=== PATIENT | female | born 1975 ===

== ENCOUNTER 2024-12-31 20:05 | Inpatient (IN) | payer MEDICAID ==
[~2024-12-31] VITALS: Ht 165.1 cm; Wt 100.3 kg
[2024-12-31 21:13] LABS: BASOPHILS ABSOLUTE AUTO 0.08 K/mm3 (0.00-0.23); BASOPHILS PERCENT AUTO 1 % (0-2); EOSINOPHILS ABSOLUTE AUTO 0.17 K/mm3 (0.00-0.68); EOSINOPHILS PERCENT AUTO 2 % (0-6); Hematocrit 42.8 % (33.0-51.0); Hemoglobin 14.0 g/dL (11.5-16.0); IMMATURE GRAN ABSOLUTE AUTO 0.04 K/mm3 (0.00-0.10); IMMATURE GRAN PERCENT AUTO 0 % (0-1); LYMPHOCYTES ABSOLUTE AUTO 2.38 K/mm3 (0.84-5.20); LYMPHOCYTES PERCENT AUTO 24 % (21-46); MONOCYTES ABSOLUTE AUTO 0.91 K/mm3 (0.16-1.47); MONOCYTES PERCENT AUTO 9 % (4-13); Mean Corpuscular HGB Conc 32.7 g/dL (31.5-36.5); Mean Corpuscular Volume 91 fL (80-100); NEUTROPHILS ABSOLUTE AUTO 6.45 K/mm3 (1.96-9.15); NEUTROPHILS PERCENT AUTO 64 % (41-73); NRBC ABSOLUTE 0.00 K/mm3 (0.00-0.02); NRBC Auto 0.0 /100 WBC (0.0-0.2); Platelet Count 411 K/mm3 (150-400); RDW Coefficient Variation 14.4 % (11.7-14.2); RDW Standard Deviation 48.0 fL (35.1-46.3)
[2024-12-31 22:01] LABS: Ethanol (Alcohol), Blood, Med 8 mg/dL; Salicylate <1.7 mg/dL (2.8-20.0)
[2024-12-31 22:02] LABS: Acetaminophen, Random <2.0 ug/mL (10.0-30.0); Alanine Aminotransfer (ALT/SGP 44 U/L (12-78); Albumin, Blood 3.6 g/dL (3.4-5.0); Albumin/Globulin Ratio 0.9 (0.8-1.8); Anion Gap 10 mmol/L (3-11); Aspartate Aminotrans (AST/SGOT 48 U/L (12-37); Bilirubin, Total 0.8 mg/dL (0.1-1.0); Blood Urea Nitrogen 11 mg/dL (8-24); CO2, Blood 21 mmol/L (21-32); Calcium, Blood 8.9 mg/dL (8.5-10.1); Chloride, Blood 107 mmol/L (98-108); Creatinine, Blood 1.49 mg/dL (0.40-1.00); Globulin, Blood 4.1 g/dL (2.2-4.0); Glucose, Blood 108 mg/dL (70-99); Potassium, Blood 3.4 mmol/L (3.5-5.5); Sodium, Blood 135 mmol/L (136-145); Total Protein, Blood 7.7 g/dL (6.4-8.2)
[2024-12-31] MEDS ORDERED: FLU VACC TS2025-26(6MOS UP)/PF 45 MCG/0.5 ML SYRINGE IM SCH (22:50)
[2024-12-31] MEDS ORDERED: NS 1,000 ML IV SCH (23:00)
[2024-12-31] MEDS ORDERED: LORazepam 2 MG/ML 1ML Injection IV PRN ×2 (23:00)
[2025-01-01 00:52] VITALS: BP 141/85
[2025-01-01] MEDS ORDERED: QUET200 PO (00:59)
[2025-01-01] MEDS ORDERED: CARB100ER PO (01:23)
[2025-01-01] MEDS ORDERED: INGREZZA80 MG PO (01:23)
[2025-01-01 04:37] VITALS: BP 129/92
--- NOTE | 2025-01-01 06:38 | NUR ---
PT STABLE SINCE ADMIT. PT IS AOX3, UNSURE OF DATE. PT WAS ABLE TO TRANSFER WITH SBA TO BED FROM [facility] ON ADMIT. PT HAS BEEN ON CARDIAC MONITORING. 1:[address] FOR SI[address] ROOM HAS BEEN MITIGATED. PT BELONGINGS LOCKED IN CABINET IN ROOM. PT DOES ENDORSE HEARING VOICES WHICH ARE NEGATIVE IN NATURE, WITH SOME TELLING HER TO HARM HERSELF. PT IS TOLEARTING IV FLUIDS WELL. NO BOWEL MOVEMENTS AT THIS TIME. PT IS NPO WITH SIPS/CHIPS OKAYED BY DR. PURVIS. PT IS REQUESTING FOOD BUT CURRENTLY IS BEING COOPERATIVE. PT POOR HISTORIAN ON ADMIT D/T BOUNCING FROM TOPIC TO TOPIC OCCASIONALLY CONTRADICTING HERSELF.
--- NOTE | 2025-01-01 07:51 | NUR ---
Pt is oriented to self, place, and ongoing events but confused to date/time and her speech is disorganized and pressured at times. Denies any abdominal pain. Alert, but keeps eyes closed while actively engaging in conversation. Initiates conversation and readily responds. States that she had 2 BM yesterday. No BM since arrival to PCU. States has pain in her right knee and in her back. V/S are stable. Called lab to come and do the ordered labs for this morning.
--- NOTE | 2025-01-01 08:11 | NUR ---
Pt is asking for a urine check for UTI. States she only has one kidney and is sure that she has an infection.
[2025-01-01 08:26] LABS: BASOPHILS ABSOLUTE AUTO 0.05 K/mm3 (0.00-0.23); BASOPHILS PERCENT AUTO 1 % (0-2); EOSINOPHILS ABSOLUTE AUTO 0.15 K/mm3 (0.00-0.68); EOSINOPHILS PERCENT AUTO 3 % (0-6); Hematocrit 37.1 % (33.0-51.0); Hemoglobin 12.1 g/dL (11.5-16.0); IMMATURE GRAN ABSOLUTE AUTO 0.02 K/mm3 (0.00-0.10); IMMATURE GRAN PERCENT AUTO 0 % (0-1); LYMPHOCYTES ABSOLUTE AUTO 1.54 K/mm3 (0.84-5.20); LYMPHOCYTES PERCENT AUTO 29 % (21-46); MONOCYTES ABSOLUTE AUTO 0.49 K/mm3 (0.16-1.47); MONOCYTES PERCENT AUTO 9 % (4-13); Mean Corpuscular HGB Conc 32.6 g/dL (31.5-36.5); Mean Corpuscular Volume 93 fL (80-100); NEUTROPHILS ABSOLUTE AUTO 3.14 K/mm3 (1.96-9.15); NEUTROPHILS PERCENT AUTO 58 % (41-73); NRBC ABSOLUTE 0.00 K/mm3 (0.00-0.02); NRBC Auto 0.0 /100 WBC (0.0-0.2); Platelet Count 279 K/mm3 (150-400); RDW Coefficient Variation 14.6 % (11.7-14.2); RDW Standard Deviation 49.8 fL (35.1-46.3)
[2025-01-01 08:48] LABS: Alanine Aminotransfer (ALT/SGP 32.0 U/L (12-78); Albumin, Blood 2.9 g/dL (3.4-5.0); Albumin/Globulin Ratio 0.9 (0.8-1.8); Anion Gap 8.0 mmol/L (3-11); Aspartate Aminotrans (AST/SGOT 35.0 U/L (12-37); Bilirubin, Total 0.9 mg/dL (0.1-1.0); Blood Urea Nitrogen 12.0 mg/dL (8-24); CO2, Blood 24.0 mmol/L (21-32); Calcium, Blood 8.3 mg/dL (8.5-10.1); Chloride, Blood 113.0 mmol/L (98-108); Creatinine, Blood 1.13 mg/dL (0.40-1.00); Globulin, Blood 3.3 g/dL (2.2-4.0); Glucose, Blood 98.0 mg/dL (70-99); Potassium, Blood 3.5 mmol/L (3.5-5.5); Sodium, Blood 141.0 mmol/L (136-145); Total Protein, Blood 6.2 g/dL (6.4-8.2)
[2025-01-01] MEDS ORDERED: Heparin Sodium,Porcine 5,000 UNIT/0.5 ML SDV SC SCH (09:00)
--- NOTE | 2025-01-01 09:56 | NUR ---
Pt is agitated, pressured speech and stating that she cannot and does not communicate verbally. Insisting that all her information is on her phone and she needs it to communicate. She is angry.
[2025-01-01 10:01] LABS: Source, Urine Clean Catch
[2025-01-01 10:07] LABS: Bilirubin, Urine Neg (Neg); Color, Urine Yellow (P-Yellow); Glucose Qualitative, Urine Neg (Neg); Ketones, Urine Neg (Neg); Leukocyte Esterase, Urine 1+ (Neg); Protein, Urine 2+ (Neg); Specific Gravity, Urine 1.030 (1.003-1.022); Urobilinogen, Urine NORM (Normal)
--- NOTE | 2025-01-01 10:24 | NUR ---
Dr. Esteban rounded on the patient.
[2025-01-01 10:29] LABS: Red Blood Cells, Urine Not Seen /hpf (0-2)
[2025-01-01 11:50] VITALS: BP 132/98
[2025-01-01 16:02] VITALS: BP 134/100
--- NOTE | 2025-01-01 16:26 | NUR ---
Pt has vascilated from anxious and agitated, talking rapidly and quickly, to calm and cheerful still with pressured speech and flight of ideas. She is responding well to the sitter who is in the room with her today, making pleasant conversation. She is very eager to have clear liquids regularly brought to her. Asking frequently. Had one normal soft brown BM in the toilet. Last abdominal xray was done at 1400. Next one is ordered for 5 am.
--- NOTE | 2025-01-01 16:36 | NUR ---
Spoke with Dr. Oliveira regarding amiodarone gtt which is due to stop at 1999 this evening. New orders for po amiodarone will be put in.
[2025-01-01] MEDS ORDERED: NS 250 ML IV PRN (19:35)
[2025-01-01 19:42] VITALS: BP 141/90
[2025-01-01 23:16] VITALS: BP 129/84
[2025-01-02 03:21] VITALS: BP 108/68
--- NOTE | 2025-01-02 05:47 | NUR ---
SHIFT SUMMARY PT A&Ox4, COMMUNICATES NEEDS APPROPRIATELY. HAS FLIGHT OF IDEAS AND PRESSURED SPEACH. SBA IN ROOM. CONTINENT OF URINE, NO BM THIS SHIFT. NO S/S OF BLEEDING OR ABDOMINAL/RECTAL PAIN. BP STABLE. SR-ST 90-110's, DENIES CP/PRESSURE. SpO2> 92% RA, DENIES SOB, REFUSING TO WEAR CONTINUOUS SpO2 MONITOR. PT DID NOT EXPRESS ANY SUICIDAL IDEATIONS. NO OTHER EVENTS, WILL REPORT TO ONCOMING RN.
--- NOTE | 2025-01-02 07:44 | NUR ---
UPDATE: PT LEFT FLOOR WITH IMAGING AT 0740.
[2025-01-02 08:09] VITALS: BP 110/68
[2025-01-02] MEDS ORDERED: BENZ1 PO (08:49)
[2025-01-02 11:51] VITALS: BP 128/78
--- NOTE | 2025-01-02 14:26 | NUR ---
UPDATE: NOTIFIED MD FREED THIS AFTERNOON OF PTS BOWEL MOVEMENT. ORDERS UPDATED FOR REPEAT PELVIC XRAY. PT ABLE TO TRANSFER TO U IF ALL CALE/TACKS ARE ELIMINATED VIA BM. IMAGING CAME TO BEDSIDE AT APPROX 1410, AWAITING FINDINGS.
[2025-01-02 15:35] VITALS: BP 137/78
--- NOTE | 2025-01-02 16:18 | NUR ---
SHIFT SUMMARY: PT A/O X4, ABLE TO MAKE NEEDS KNOWN. PT HAS BEEN CALM AND COOPERATIVE THIS SHIFT. STRENGTH EQUAL BILATERALLY, SBA TO BATHROOM. PT HAD BM THIS SHIFT. MD NOTIFIED, AWAITING ORDERS. SR-ST 90-100s, OTHER VSS. DENIES CHEST PAIN/PRESSURE. ROOM AIR, SATS >95%. DENIES SOB. PT DID NOT EXPRESS ANY SUICIDAL IDEATIONS. DR CHOW SPOKE WITH PT TODAY, SEE NOTE. PT LYING IN BED, 1:1 SITTER AT BEDSIDE. CALL WITHIN REACH. WILL REPORT TO ONCOMING RN.
[2025-01-02 19:11] VITALS: BP 137/94
[2025-01-03 00:25] VITALS: BP 131/81
[2025-01-03 02:57] VITALS: BP 133/83
[2025-01-03 03:21] LABS: BASOPHILS ABSOLUTE AUTO 0.03 K/mm3 (0.00-0.23); BASOPHILS PERCENT AUTO 1 % (0-2); EOSINOPHILS ABSOLUTE AUTO 0.15 K/mm3 (0.00-0.68); EOSINOPHILS PERCENT AUTO 3 % (0-6); Hematocrit 37.3 % (33.0-51.0); Hemoglobin 11.8 g/dL (11.5-16.0); IMMATURE GRAN ABSOLUTE AUTO 0.05 K/mm3 (0.00-0.10); IMMATURE GRAN PERCENT AUTO 1 % (0-1); LYMPHOCYTES ABSOLUTE AUTO 1.38 K/mm3 (0.84-5.20); LYMPHOCYTES PERCENT AUTO 29 % (21-46); MONOCYTES ABSOLUTE AUTO 0.41 K/mm3 (0.16-1.47); MONOCYTES PERCENT AUTO 9 % (4-13); Mean Corpuscular HGB Conc 31.6 g/dL (31.5-36.5); Mean Corpuscular Volume 94 fL (80-100); NEUTROPHILS ABSOLUTE AUTO 2.71 K/mm3 (1.96-9.15); NEUTROPHILS PERCENT AUTO 57 % (41-73); NRBC ABSOLUTE 0.00 K/mm3 (0.00-0.02); NRBC Auto 0.0 /100 WBC (0.0-0.2); Platelet Count 219 K/mm3 (150-400); RDW Coefficient Variation 13.7 % (11.7-14.2); RDW Standard Deviation 46.7 fL (35.1-46.3)
[2025-01-03 03:50] LABS: Alanine Aminotransfer (ALT/SGP 25.0 U/L (12-78); Albumin, Blood 2.8 g/dL (3.4-5.0); Albumin/Globulin Ratio 0.9 (0.8-1.8); Anion Gap 8.0 mmol/L (3-11); Aspartate Aminotrans (AST/SGOT 20.0 U/L (12-37); Bilirubin, Total 0.4 mg/dL (0.1-1.0); Blood Urea Nitrogen 8.0 mg/dL (8-24); CO2, Blood 24.0 mmol/L (21-32); Calcium, Blood 8.5 mg/dL (8.5-10.1); Chloride, Blood 110.0 mmol/L (98-108); Creatinine, Blood 0.87 mg/dL (0.40-1.00); Globulin, Blood 3.1 g/dL (2.2-4.0); Glucose, Blood 99.0 mg/dL (70-99); Potassium, Blood 4.1 mmol/L (3.5-5.5); Sodium, Blood 138.0 mmol/L (136-145); Total Protein, Blood 5.9 g/dL (6.4-8.2)
--- NOTE | 2025-01-03 05:30 | NUR ---
SHIFT SUMMARY PT A&O X4, AGITATED AT TIMES, PRESSURED SPEECH. PT IN SUICIDE RISK PRECAUTIONS. 1:1 SITTER AT BEDSIDE. PT DID NOT EXPRESS ANY SUICIDAL IDEATIONS T/O SHIFT. HR IN THE 90'S, SR. SHE DENIES ANY CP/PRESSURE, NUMB/TINGLING, SBP STABLE. SpO2 >92% ON RA, SHE DENIES ANY SOB. PT HAS NOT HAD A BM THIS SHIFT, DENIES ANY ABD PAIN OR N/V. PT RESTING IN BED AT THIS TIME CALL LIGHT IN REACH. SITTER AT BEDSIDE. WILL MONITOR PT AND REPORT TO ONCOMING RN.
[2025-01-03 07:40] VITALS: BP 131/102
[2025-01-03 11:51] VITALS: BP 146/96
--- NOTE | 2025-01-03 14:02 | NUR ---
Pt walked to the bathroom. She declined a shower this morning. Walking to and from the bathroom to bed without difficulty.
--- NOTE | 2025-01-03 17:01 | NUR ---
SHIFT SUMMARY/DISCHARGE PATIENT IS ALERT AND ORIENTED, ABLE TO FOLLOW COMMANDS AND MAKE NEEDS KNOWN. VSS, TELE IN PLACE AT START OF SHIFT, SINUS TACH IN 100'S, SPO2 >90% ON RA. PATIENT DENIES PRESENCE OF CHEST PAIN, PRESSURE, OR SHORTNESS OF BREATH. PATIENT DENIES N/V/D. DENIES DIFFICULTY URINATING. PATIENT DENIES SUICIDAL/HOMICIDAL IDEATION THIS SHIFT. SI RISK PRECAUTIONS IN PLACE, 1:1 SITTER PRESENT. PATIENT IS A SBA TO THE BATHROOM WITH SUPERVISION. DISCHARGE REPORT GIVEN TO U RN. U RN AND SECURITY TO ESCORT PATIENT TO [facility]. ALL PATIENT BELONGINGS WITH PATIENT ESCORT. PATIENT IN NO SIGNS OF DISTRESS.
--- NOTE | 2025-01-03 17:07 | NUR ---
[facility] employee Reuben arrived just at 5 pm and the pt was escorted from the unit. All her belongings in a red personal bag and a white hospital belongings bag were given to Reuben. There were no other patient items left in the closet nor in the room.
== END 2025-01-03 17:00 | DRG 394 ==
LOC: ER 20:05 → PCU 20:06 → ERHOLD 20:06 → PCU 01-01 00:37
PROVIDERS: Family Medicine; Student in an Organized Health Care Education/Training Program; ADMIT Internal Medicine
DX: T18.4XXA Foreign body in colon, initial encounter (principal); F20.0 Paranoid schizophrenia; N17.9 Acute kidney failure, unspecified; R45.851 Suicidal ideations; W44.H9XA Other sharp object entering into or through a natural orifice, initial encounter; F10.10 Alcohol abuse, uncomplicated; E87.6 Hypokalemia; F15.10 Other stimulant abuse, uncomplicated; F12.10 Cannabis abuse, uncomplicated; Z91.51 Personal history of suicidal behavior
CPT/HCPCS: 36415; 71045; 72170; 74018; 74019; 80053; 80320; 81001; 85025; 87086; 94762; 96361; 96365; 96366; 96368; 99285-25; A9270; G0378; G0480; J3411; J3480; J7030; J7050

== ENCOUNTER 2025-01-03 11:22 | Inpatient (IN) | payer MEDICAID ==
[~2025-01-03] VITALS: Ht 152.4 cm; Wt 94.3 kg
[~2025-01-03 11:22] MED LIST: BENZ1 PO; CARB100ER PO; INGREZZA80 MG PO; QUET200 PO
[2025-01-03 17:17] VITALS: BP 137/114
[2025-01-03] MEDS ORDERED: Ondansetron 4 MG SoluTab MM PRN (17:35)
[2025-01-03] MEDS ORDERED: Polyethylene Glycol 3350 17 gm PO PRN (17:35)
[2025-01-03 17:39] VITALS: BP 137/114
[2025-01-03] MEDS ORDERED: FLU VACC TS2025-26(6MOS UP)/PF 45 MCG/0.5 ML SYRINGE IM SCH (17:40)
[2025-01-03] MEDS ORDERED: Aluminum Hydroxide 320MG/5ML 473 ML PO PRN (17:40)
--- NOTE | 2025-01-03 18:14 | NUR ---
SHIFT SUMMARY PT CURRENTLY DENIES SI, HI, VISUAL AND TACTILE HALLUCINATIONS. ENDORSES AUDITORY HALLUCINATIONS, STATES THEY ARE HER "CHEERLEADERS", BUT SOMETIMES SAY "NEGATIVE" THINGS TO HER. DENIES COMMAND HALLUCINATIONS. PT SPEECH IS CIRCUMSTANTIAL; PT ALSO HAS PARANOIA ABOUT WATER AND PREFERS SEALED DRINKS "JUICES OR SODAS". PT STATES SHE'S "NEVER" HAD DEPRESSION AND THAT THIS PREVIOUS ATTEMPT WAS D/T "RAGE". PT ENDORSES BEING IMPULSIVE. PT ALSO REQUESTED NO INJECTIONS, NO MEDICATIONS LASTING LONGER THAN A WEEK, AND TO NOT CHANGE MEDICATIONS. NO ACUTE EVENTS SINCE.
--- NOTE | 2025-01-03 20:17 | NUR ---
ADMISSION NOTE: THIS RN COMPLETED PATIENT ADMISSION. SHE STATES THAT "THE BIGGEST PROBLEM IS THAT PEOPLE DON'T UNDERSTAND WHAT IS GOING ON". SHE STATES, "I HAVE ADHD AND AUTISM, AND I HAVE TROUBLE WITH VERBAL COMMUNICATION." SHE STATES THAT HER GRANDPA AND UNCLE HAVE A HISTORY OF SCHIZOPHRENIA. 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 SHE IS CONCERNED THAT PEOPLE MIGHT MISUNDERSTAND HER ILLNESS, AND WANTS THEM TO KNOW THAT SHE IS MOST DISTRESSED DUE TO HER VERBAL COMMUNICATION ISSUES. SHE DESCRIBES HER SPIRITUAL BELIEFS "AN ELEVATIONIST". HER BIGGEST CONCERN IS FINANCIAL, AND SHE STATES "I HAVE A PAYEE AND I DON'T NEED ONE". SHE STATES THAT HER SUICIDE ATTEMPT WAS NOT FROM SADNESS OR DEPRESSION, "I DON'T EVER HAVE THOSE" BUT THAT IT CAME FROM "RAGE THAT I DON'T GET TO MAKE MY OWN MONEY DECISIONS". SHE STATES THAT SHE USUALLY TAKES SEROQUEL 200 MG PO AT BEDTIME, AND WOULD APPRECIATE HAVING THAT HERE. HER GOAL IS TO GO BACK TO [place] TO A PLACE CALLED [facility], WHERE "ARTISTS CAN LIVE BY THE WATER". SHE HAS HAD TWO WRITTEN INTERVIEWS WITH THEM, AND NOW IT IS TIME FOR THE TELEPHONE INTERVIEW. SHE IS CONCERNED, "BECAUSE I DON'T EXPRESS MYSELF WELL VERBALLY." HER SPECIAL INTEREST IS "NON-PROFIT ORGANIZATIONS" AND SHE ENJOYS HELPING THEM. SHE STATES THAT "I BINGED ON ALCOHOL, WHATEVER I COULD GET MY HANDS ON. I'M THREE DAYS OUT FROM THAT, AND I DON'T HAVE ANY SYMPTOMS, WHICH SURPRISES ME." SHE STATES THAT, "I SLEEP WELL AND USUALLY DON'T NEED MEDICATIONS." SHE APPRECIATES PEOPLE TAKING THE TIME TO HEAR HER, AND LISTENING TO WHAT SHE MEANS. CONTINUING TO MONITOR FOR SAFETY WITH Q15 MINUTE CHECKS.
--- NOTE | 2025-01-04 05:02 | NUR ---
SHIFT SUMMARY: PATIENT WAS IN HER BED RESTING BUT AWAKE AT THE BEGINNING OF THE SHIFT. SHE WAS ASKED IF IT WOULD BE POSSIBLE TO FINISH HER ADMISSION, AND SHE STATED THAT SHE WAS WILLING TO DO THAT, IF SHE COULD STAY IN BED. RN WENT TO HER ROOM TO COMPLETE THE ADMISSION. PATIENT STATED THAT SHE DID NOT "TRY TO KILL MYSELF BECAUSE I WAS DEPRESSED. I'VE NEVER BEEN DEPRESSED OR SAD IN MY LIFE. I FELT RAGE AND THAT WAS THE FEELING THAT MADE ME DO THAT." PATIENT DENIES SUICIDAL IDEATION, THOUGHTS OF SELF HARMING AND V/T HALLUCINATIONS. SHE ADMITS TO AUDITORY HALLUCINATIONS, BUT STATED, "I AM NOT HAVING THEM RIGHT NOW." SHE BELIEVES HER DIAGNOSES INCLUDE "AGORAPHOBIA, ADHD AND AUTISM. I ALSO DON'T COMMUNICATE WELL WHEN I TRY TO TALK." SHE STATED THAT SHE HASN'T HAD A DRINK "IN THREE DAYS. I'M SURPRISED I'M DOING SO WELL, BUT I DO FEEL FINE." HER CIWA AT 2000 WAS 4, AND AT 0000 IT WAS 0 AND AT 0400 IT WAS 0. PATIENT BELIEVES THAT SHE IS HERE IN THE [facility] BECAUSE "I LET MY RAGE TAKE ME OVER" AND SHE IS CONCERNED "THAT PEOPLE DON'T UNDERSTAND THAT I HAVE AUTISM AND ADHD. IT MAKES THINGS SO HARD." SHE STATED THAT SHE HAS HAD A DIAGNOSIS OF ADHD, BUT WAS UNCLEAR WHETHER OR NOT SHE HAS HAD AN ACTUAL DIAGNOSIS OF AUTISM. SHE IS INTERESTED IN GETTING PROPERLY DIAGNOSED. "I'M GLAD TO BE HERE, BECAUSE I'M HOPING TO FINALLY GET THE RIGHT DIAGNOSIS." SHE WANTS TO GO LIVE ON AN ACREAGE IN [place] (SEE ADMISSION NOTE FROM [facility] THIS SHIFT) BUT IS CONCERNED BECAUSE SHE HAS TO HAVE A PHONE INTERVIEW "AND I DON'T COMMUNICATE WELL VERBALLY". SHE DID GET UP FOR SNACK AND WRAP UP GROUP IN THE DINING AREA AT 2030, AND THEN WENT BACK TO BED. SHE STATED THAT SHE TAKES SEROQUEL 200 MG PO QHS. THIS WAS ALSO LISTED IN HER MEDICATION RECONCILIATION. AN ORDER WAS OBTAINED AND SHE WAS GIVEN THE SEROQUEL FOR BEDTIME, WHICH APPEARED TO BE EFFECTIVE, SHE RESTED, SNORING, IN BED WITH RESPIRATIONS CONFIRMED FOR THE REMAINDER OF THE SHIFT. CONTINUING TO MONITOR FOR SAFETY WITH Q15 MINUTE CHECKS.
[2025-01-04 07:53] LABS: CHOL/HDL RATIO 2.9; Cholesterol 171 mg/dL (50-200); HDL Cholesterol 59 mg/dL (>39); LDL/HDL RATIO 1.4; Low Density Lipoprotein Chol 82 mg/dL (0-110); Triglycerides 149 mg/dL (30-160); Very Low Density Lipoprot Chol 29 mg/dL (6-32)
[2025-01-04 08:40] VITALS: BP 129/92
[2025-01-04] MEDS ORDERED: Multivitamins 1 Tab PO SCH (09:00)
--- NOTE | 2025-01-04 17:07 | NUR ---
PRN 10MG ZYPREXA GIVEN FOR MASS SCORE GREATER THAN 9. PT BECAME VERY AGITATED AFTER A PHONE CALL TO BANK. THERE HAS BEEN A 800 WITHRAWL TO A [employer] CARD. IT IS UNCLEAR IF PATIENT HAS A PYEE. SHE STATES SHE DOES NOT NEED ONE BUT IS SHE WILL NOT STATE WHO HAS ACCESS TO BANKING. PT CALM AND IN TV ROOM AT THIS TIME
--- NOTE | 2025-01-04 17:11 | NUR ---
SHIFT SUMMARY PT AA&O TO PERSON, PLACE, AND SITUATION. SHE REPORTS MOOD OKAY. AFFECT HAS SHIFTED THROUGHOUT THE DAY. SHE HAS PRESENTED CALM, BUT ALSO TANGENTAL AT TIMES. SHE IS PREOCCUPIED WITH MONEY AND ACCOUNTS. IT IS UNCLEAR TO THIS RN IF SHE HAS A PAYEE OR IF PEOPLE ARE TAKING ADVATAGE. SHE WILL NOT ANSWER WHO IS HELPING HER FINACIALLY OR WHO HAS ACCESS TO ACCOUNTS BUT STATES THAT SHE DOES NOT NEED HELP. THERE WAS A TRANSFER TO [employer] TODAY FOR 800. SHE DOES NOT KNOW IF SHE HAS THE [employer] CARD. SHE BECAME AGITATED AND WAS MEDICATED X1 WITH ZYPREXA. SHE DENIES SI, AVH. SHE SPENT MOST OF THE DAY IN HER ROOM NAPPING. SHE DID GET UP FOR MEALS AND SHOWER. WILL CONTINUE POC
--- NOTE | 2025-01-04 18:11 | NUR ---
PT RETURNS TO NURSING STATION. SPEECH IS TNGENTAL AND DISORGANIZED. SHE STATES SHE DOES NOT FEEL ZYPREXA IS WORKING. SECOND ZYPREXA GIVEN. SHE IS NOW IN SENSORY ROOM TALING TO SO
--- NOTE | 2025-01-05 05:50 | NUR ---
SHIFT SUMMARY: PATIENT WAS IN BED RESTING AT THE BEGINNING OF THE SHIFT. SHE GOT UP AND USED THE TELEPHONE AND SPENT SOME TIME IN THE DAYROOM WITH HER BLANKET UP OVER HER HEAD LIKE A HOODIE. SHE APPEARED TO BE WATCHING TELEVISION WITH STAFF AND PEERS. SHE PRESENTED BLUNTED AND ANXIOUS. SHE REQUESTED THAT MEDICATION BE BROUGHT TO HER, SHE WANTED TO GO TO BED. SHE DID, HOWEVER, DECIDE TO GET UP FOR SNACK, AFTER STAFF ENCOURAGED HER, AND SHE PARTICIPATED IN SNACK AND WRAP UP GROUP IN THE DINING AREA. SHE WAS COMPLIANT WITH HER EVENING MEDICATION, AND WENT BACK TO BED, WHERE SHE RESTED QUIETLY WITH EYES CLOSED AND RESPIRATIONS CONFIRMED FOR THE REMAINDER OF THE SHIFT. SHE ANSWERED BACK SHOE CUTTER QUESTIONS WITH SHORT ANSWERS. SHE DENIED SUICIDAL IDEATION, THOUGHTS OF SELF HARMING AND A/V/T HALLUCINATIONS. SHE EXPRESSED CONCERNS REGARDING "SOMEONE TOOK $800 OUT OF MY BANK ACCOUNT". SHE IS HOPING FOR HELP FINDING OUT WHAT HAPPENED TO HER MONEY AND BY WHOM. CONTINUING TO MONITOR FOR SAFETY WITH Q15 MINUTE CHECKS.
[2025-01-05 08:24] VITALS: BP 122/86
--- NOTE | 2025-01-05 17:19 | NUR ---
SHIFT SUMMARY PT A/O X4; COOPERATIVE WITH CARE. SHE DENIES SI, HI, AVTH. SHE REPORTS ANXIETY AND FRUSTRATION REGARDING HER MONETARY SITUATION. PT CALLED HER BANK TODAY. SHE WAS MEDICATED FOR ANXIETY PER EMR WITH GOOD EFFECT ONCE THIS SHIFT, SEE MASS DOCUMENTATION. PT HAS A RED BUMP ON HER ABD THAT PT SAYS WAS NOT PRESENT YESTERDAY. REDDENED AREA OUTLINE TO CHECK FOR SPREAD. PT HAS BEEN SLEEPING FOR THE MAJORITY OF THE SHIFT AND APPEARS GUARDED/DISINTERESTED.
--- NOTE | 2025-01-05 19:08 | NUR ---
MASS SCORE: PATIENT UPSET ABOUT MONEY GOING OUT OF HER ACCOUNT. SHE SPOKE WITH BANK, BUT IS STILL UPSET AND AGITATED. REQUESTED AND WAS GIVEN ZYPREXA 10 MG PO ODT PRN FOR MASS SCORE 11. PATIENT TOOK MEDICATION AND THEN WENT TO LIE DOWN "TO TRY TO CALM DOWN". SHE REITERATES THAT SHE IS "ANGRY, BUT NOT AT ANYONE HERE".
[2025-01-05 19:09] VITALS: BP 123/83
--- NOTE | 2025-01-05 22:07 | NUR ---
MASS SCORE: PATIENT REQUESTED AND WAS GIVEN SECOND ZYPREXA PER ORDERS. FIRST ZYPREXA 10 MG PO PRN GIVEN: 1903 FOR MASS SCORE 11 SECOND ZYPREXA 10 MG PO PRN GIVEN: 2016 FOR MASS SCORE 8 PATIENT CONTINUES TO BE AGITATED REGARDING HER MONEY SITUATION. SHE IS USING COPING SKILLS SUCH POSITIVE SELF THOUGHT AND DEEP BREATHING WELL HER PRN MEDICATION, AND STATES "I FEEL LIKE I'M STARTING TO CALM". CONTINUING TO MONITOR FOR SAFETY.
--- NOTE | 2025-01-06 05:38 | NUR ---
SHIFT SUMMARY: PATIENT HAS VERY LOW CIWA SCORES. THEY WERE: 2000: 1, 0000:0 AND 0400: 0. SHE HAS NO C/O ETOH WITHDRAWAL. PATIENT STATED THAT SHE FEELS BETTER "NOW THAT I KNOW MORE ABOUT MY MONEY". SHE PLANS TO GO IN PERSON TO THE BANK AND SECURE HER FUNDS AND KEEP THEM SAFE. SHE WAS ABLE TO ANSWER AIRFLIGHT ATTENDANTS SUPERVISOR QUESTIONS IN A LOGICAL AND LINEAR MANNER. SHE DENIED SUICIDAL IDEATION, THOUGHTS OF SELF HARMING AND A/V/T HALLUCINATIONS. SHE ADMITTED TO "ANGER AND AGITATION" AND PRESENTED WITH BOTH. SHE STATED, "I'M FEELING THAT WAY BECAUSE OF MY MONEY SITUATION". SHE REQUESTED AND WAS GIVEN ZYPREXA FOR MASS SCORE 11 AT 1904. IT WAS A LITTLE EFFECTIVE, BUT NOT A LOT. A SECOND ZYPREXA WAS GIVEN, AT HER REQUEST, AT 2016 FOR A MASS SCORE OF 8. AFTER THAT, SHE WAS ABLE TO CALM MORE AND EVENTUALLY TO GO TO BED AND REST. SHE PARTICIPATED IN SNACK AND WRAP UP GROUP AT 2000 IN THE DINING AREA, AND WAS COMPLIANT WITH EVENING MEDICATION ADMINISTRATION. SHE WENT TO BED AFTER SNACK AND WAS NOTED TO BE RESTING QUIETLY WITH EYES CLOSED AND RESPIRATIONS CONFIRMED FOR THE REMAINDER OF THE SHIFT. CONTINUING TO MONITOR FOR SAFETY WITH Q15 MINUTE CHECKS.
[2025-01-06 08:38] VITALS: BP 133/98
--- NOTE | 2025-01-06 16:39 | NUR ---
UPDATE RED SONIDO W/ SWELLING DEMARCATED W/ SHARPIE ON PT'S STOMACH, PT C/O OF PAIN, IS UNSURE OF WHAT CAUSED IT. BLACK SCAB LIKE SONIDO IN MIDDLE. IBUPROFEN/BANDAGE GIVEN. PROVIDER CONSULTED PER DR DYKES.
--- NOTE | 2025-01-06 17:32 | NUR ---
SHIFT SUMMARY DENIES SI, HI, AVTH. WATCHING TV/RESTING QUIETLY/SLEEPING T/O DAY. EATING MEALS. PT BECAME ANXIOUS THIS AFTERNOON AND ZYPREXA GIVEN PER EMAR. SEE PREVIOUS NOTE ABOUT WOUND. NO OTHER ACUTE EVENTS TODAY.
[2025-01-06 19:17] VITALS: BP 150/126
[2025-01-06 19:57] VITALS: BP 140/78
[2025-01-06] MEDS ORDERED: Trimethoprim/Sulfamethoxazole DS Tab PO SCH (20:00)
[2025-01-06] MEDS ORDERED: Lactobacil 2-S.Thermo-Bifido 1 1 Cap PO SCH (21:00)
--- NOTE | 2025-01-07 04:32 | NUR ---
SHIFT SUMMARY HOSPITALIST ALISON ISABEL HERE TO SEE PATIENT REGARDING WOUND TO ABD. SEE NEW ORDERS. AFTER EVAL PATIENT ASKING FOR SOMETHING FOR ANXIETY AND FEELING "AGITATED" HYDROXYZINE GIVEN FOR MASS 6. NIBP ELEVATED 150/126 RECHECK WITH MANUAL BP AFTER PATIENT RELAXED AND RESTING IN HER ROOM 140/78. PATIENT DENIES SI OR HI. DENIES VTH. CONTINUES TO HAVE AH VERBALIZED "I LIKE MY VOICES". ABD WOUND RED AND WARM WITH BAND-AID CD&I. BORDER OF RED AREA MARKED AGAIN. PATIENT UP FOR SNACK THEN QUICKLY BACK TO ROOM. COOPERATIVE WITH SCHEDULED MEDICATIONS AND FIRST DOSE OF ANTIBIOTICS GIVEN. PATIENT APPEARS TO BE SLEEPING WELL T/O NIGHT RESP EVEN AND UNLABORED. CONTINUE TO MONITOR Q15MIN.
[2025-01-07 07:13] LABS: BASOPHILS ABSOLUTE AUTO 0.04 K/mm3 (0.00-0.23); BASOPHILS PERCENT AUTO 1 % (0-2); EOSINOPHILS ABSOLUTE AUTO 0.09 K/mm3 (0.00-0.68); EOSINOPHILS PERCENT AUTO 1 % (0-6); Hematocrit 41.6 % (33.0-51.0); Hemoglobin 13.5 g/dL (11.5-16.0); IMMATURE GRAN ABSOLUTE AUTO 0.10 K/mm3 (0.00-0.10); IMMATURE GRAN PERCENT AUTO 1 % (0-1); LYMPHOCYTES ABSOLUTE AUTO 0.88 K/mm3 (0.84-5.20); LYMPHOCYTES PERCENT AUTO 12 % (21-46); MONOCYTES ABSOLUTE AUTO 0.48 K/mm3 (0.16-1.47); MONOCYTES PERCENT AUTO 6 % (4-13); Mean Corpuscular HGB Conc 32.5 g/dL (31.5-36.5); Mean Corpuscular Volume 92 fL (80-100); NEUTROPHILS ABSOLUTE AUTO 6.00 K/mm3 (1.96-9.15); NEUTROPHILS PERCENT AUTO 79 % (41-73); NRBC ABSOLUTE 0.00 K/mm3 (0.00-0.02); NRBC Auto 0.0 /100 WBC (0.0-0.2); Platelet Count 225 K/mm3 (150-400); RDW Coefficient Variation 14.2 % (11.7-14.2); RDW Standard Deviation 48.0 fL (35.1-46.3)
[2025-01-07 08:42] VITALS: BP 180/143
[2025-01-07 09:04] VITALS: BP 144/105
--- NOTE | 2025-01-07 09:27 | NUR ---
SHIFT ASSESSMENT: PT REFUSED TO TALK WITH THIS RN OTHER THAN TO GIVE HER IDENTIFIERS FOR HER MEDS. 0900 MHA REPORTED HER B/P WAS HIGH 180/143, PULSE 123, TEMP 99.3. 09:04 VITAL SIGNS RETAKEN B/P 144/105, PULSE 109 AND RESPIRATIONS 17/MINUTE. SHE REFUSED TO ALLOW THIS RN TO VISUALIZE THE WOUND ON HER ABDOMEN. HOSPITALIST WAS NOTIFIED AND REPORTED THAT HE WILL COME OVER AND EXAMINE HER WOUND. PT REPORTED THAT HER MOOD IS, "AGITATED" AND HER AFFECT IS IRRITABLE. SHE HAS "NO GOALS TODAY." PT REMAINS IN BED.
--- NOTE | 2025-01-07 11:11 | NUR ---
PT REFUSED TO LET THE HOSPITALIST EXAMINE HER WOUND. IT WAS FULLY EXPLAINED WHAT COULD HAPPEN IF SHE WENT SEPTIC AND SHE STILL REFUSED.
--- NOTE | 2025-01-07 14:12 | NUR ---
PT CAME TO THE [facility] REQUESTING ADVIL FOR A HEADACHE OF 8/10w. SHE THEN SAID SHE WAS ANXIOUS AND WANTED, "THE PILL THAT GOES UNDER YOUR TONGUE." SHE WAS TOLD THAT SHE COULD HAVE HYDROXYZINE, SHE SAID, "WHAT HAPPENS WHEN THAT DOESN'T WORK?" SHE WAS TOLD TO USE HER SKILLS...RELAXATION...BREATHING. SHE BECAME ANGRY AND ASKED IF SHE SHOULD HURT A STAFF MEMBER. SHE WAS TOLD NO THAT SHE SHOULD NOT DO THAT. SHE WAS GIVEN HYDROXYZINE 50MG AND ASKED TO REPORT BACK IN 30 MINUTES. HER MASS WAS 15 DUE TO THE POSTURING, THREAT OF HARM, AND RAISED VOICE. PT REFUSED BREAKFAST AND LUNCH.
--- NOTE | 2025-01-07 14:57 | NUR ---
PT CAME BACK TO THE NURSES STATION REPORTING THAT SHE WAS FEELING, "ANXIOUS, DISORGANIZED THOUGHTS, AGITATION AND SOME CONFUSION." SHE WAS GIVEN ZYPREXA 10MG FOR MASS OF 15.
[2025-01-07] MEDS ORDERED: SULTRIDS PO (15:56)
[2025-01-07] MEDS ORDERED: OLANZAPINE ODT10 MG PO (15:57)
--- NOTE | 2025-01-07 18:42 | NUR ---
PT HAS BEEN OUT OF HER ROOM THIS AFTERNOON AND HAS BEEN USING THE PHONE. SHE HAS BEEN MORE PLEASANT THE LAST FEW HOURS.
[2025-01-07 20:31] VITALS: BP 127/88
[2025-01-07] MEDS ORDERED: Trimethoprim/Sulfamethoxazole DS Tab PO SCH (21:00)
--- NOTE | 2025-01-08 05:06 | NUR ---
49 YEAR-OLD FEMALE PRESENTS WELL GROOMED. SHE IS ALERT AND ORIENTED. SHE SPEAKS IN A CLEAR VOICE AND IN AN APPROPRIATE VOLUME. SHE IS ABLE TO MAKE AND KEEP EYE CONTACT DURING CONVERSATIONS. AT THE TIME OF HER ASSESSMENT, SHE DESCRIBED HER MOOD ALL RIGHT . SHE ALSO DENIED SI, HI, AND AVTH AT THAT TIME. SHE WAS IN HER BED AT THE BEGINNING OF THE SHIFT. SHE ATTENDED SNACK, AND THEN RETURNED TO BED. SHE WAS COMPLIANT WITH CARE AND MEDICATION ADMINISTRATION. SHE RECEIVED THE FOLLOWING PRN MEDICATIONS: IBUPROFEN 600MG AT 2156 FOR A 7/10 HEADACHE AND TRAZADONE 5MG AT 2317 FOR SLEEP. SHE CONTINUES TO BE MONITORED EVERY 15 MINUTES FOR WELLNESS AND SAFETY.
--- NOTE | 2025-01-08 05:07 | NUR ---
PRN NOTE PATIENT RECEIVED THE FOLLOWING PRN MEDICATIONS DURING RISK CONTROL FIELD REPRESENTATIVE: IBUPROFEN 600MG AT 2156 FOR A 7/10 HEADACHE AND TRAZADONE 5MG AT 2317 FOR SLEEP.
--- NOTE | 2025-01-08 07:49 | NUR ---
IMPORTANT DISCHARGE INFORMATION PATIENT TO DISCHARGE LATER TODAY. SHE HAS A RV ON [facility]. SHE HAS [place] AND ISN'T INTERESTED IN GETTING THE [place]. SHE STATES "I'M [place]. SHE CURRENTLY LIVES IN HER RV THAT NEEDS POSSIBLE NEW WINDOWS AND INTERIOR REPAIRS. SHE DOES HAVE AN [employer] APPOINTMENT FOR FOLLOW UP ON 01/10/25 AT 10AM WITH RUBEN BOYD. RESOURCES GIVEN FOR: [employer] OPEN ACCESS FOR MENTAL HEALTH SERVICES AND RV REPAIR SERVICES.
--- NOTE | 2025-01-08 11:12 | NUR ---
DISCHARGE SUMMARY: 11:08 PT DISCHARGED TO HER VEHICLE [facility] [address] WITH ALL OF HER BELONGINGS AND HER PRINTED DISCHARGE INSTRUCTIONS. PT REPORTED UNDERSTANDING OF HER DISCHARGE INSTRUCTIONS THEY WERE EDUCATED TO HER. PT REPORTED READINESS FOR DISCHARGE.
== END 2025-01-08 11:08 | disposition home or self-care (01) | DRG 885 ==
LOC: BHU 11:22
PROVIDERS: Nurse Practitioner Acute Care; ADMIT Psychiatry & Neurology Psychiatry
DX: F20.0 Paranoid schizophrenia (principal); L03.311 Cellulitis of abdominal wall; L02.211 Cutaneous abscess of abdominal wall; R45.851 Suicidal ideations; F12.10 Cannabis abuse, uncomplicated; F15.10 Other stimulant abuse, uncomplicated; F90.9 Attention-deficit hyperactivity disorder, unspecified type; R00.0 Tachycardia, unspecified; F10.10 Alcohol abuse, uncomplicated; I10 Essential (primary) hypertension; Z79.899 Other long term (current) drug therapy; Z79.1 Long term (current) use of non-steroidal anti-inflammatories (NSAID); Z86.14 Personal history of Methicillin resistant Staphylococcus aureus infection; Z28.21 Immunization not carried out because of patient refusal
CPT/HCPCS: 36415; 80061; 83036; 85025; A9270